=== PATIENT | female | born 1940 | race Caucasian/White ===

== ENCOUNTER 2017-09-28 16:38 | Emergency (ER) | payer OTHER, BC ==
[2017-09-28 16:46] VITALS: BP 142/70; PULSE 50; TEMP 98.3; BMI 27.1
[2017-09-28] MEDS ORDERED: SODIUM CHLORIDE 1,000 ML IV STA (17:48)
--- NOTE | 2017-09-28 18:04 | PDOC ---
History of Present Illness - General Chief Complaint: Lightheaded Stated Complaint: DIZZINESS Time Seen by Provider: 09/28/17 17:22 History Source: Patient Exam Limitations: No Limitations - History of Present Illness Initial Comments: CHIEF COMPLAINT: 77 y/o afebrile female with PMH HTN, HLD, DM (doctor recently discontinued glyburide) c/o dizziness with room spinning intermittently for the past few weeks. HISTORY OF PRESENT ILLNESS: The patient states the dizziness began about 4 weeks ago after her and she moved in with her son who is on Methadone. She states her life became very stressful and that's when the episodes of dizziness began. She states her doctor discontinued her glyburide AFTER the dizziness started. She is not currently dizzy. She was seen by her PMD on 09/[address] scan of the head was performed which was normal. She denies fever, chills, n/v/d, Cp, SOB, abd pain, back pain, hematuria, dysuria, recent URI symptoms, recent travel, positional dizziness. She also just had an ECHO and a carotid doppler a few days ago and does not have the results. PMD is Dr. Harris. Vital signs on arrival are notable for pulse of 50. REVIEW OF SYSTEMS: GENERAL/CONSTITUTIONAL: No fever/chills. No weakness. No weight change. HEAD, EYES, EARS, NOSE AND THROAT: No change in vision. No ear pain or discharge. No sore throat. CARDIOVASCULAR: No chest pain or shortness of breath. RESPIRATORY: No cough, wheezing, or hemoptysis. GASTROINTESTINAL: No abd pain, nausea, vomiting, diarrhea. GENITOURINARY: No dysuria, frequency, or change in urination. MUSCULOSKELETAL: No joint or muscle swelling or pain. No neck or back pain. SKIN: No rash or easy bruising. NEUROLOGIC: +dizziness with sensation of room spinning. No headache, loss of consciousness, or loss of sensation. PHYSICAL EXAM: GENERAL: The patient is awake, alert, and fully oriented, in no acute distress. She is very anxious and won't sit back in the ER bed. HEAD: Normal with no signs of trauma. ENT: Pupils equal, round and reactive to light, extraocular movements intact, sclera anicteric, conjunctiva clear. no nystagmus. No reproduction of symptoms with genoveva-hallpike maneuver. LUNGS: Clear to auscultation bilaterally. Normal excursion. No respiratory distress or use of accessory muscles. CV: RRR, S1/S2, no MRG. Cap refill < 2 sec. ABDOMEN: Soft, non-distended, non-tender even to deep palpation, no hepatomegaly or splenomegaly, no masses. EXTREMITIES: Normal range of motion, no edema. NEUROLOGICAL: Normal speech, normal gait. CN II-XII grossly intact. PSYCH: Patient is very anxious. SKIN: Warm, dry, normal turgor, no rashes or lesions noted. Past History - Past Medical History Allergies/Adverse Reactions: Allergies Allergy/AdvReac Type Severity Reaction Status Date / Time linagliptin [From Tradjenta] Allergy "RASH,HIVES Verified 09/28/17 16:46 " metformin HCl [From Glumetza] Allergy "DIARRHEA" Verified 09/28/17 16:46 sulfamethoxazole Allergy Verified 09/28/17 16:46 [From Sulfatrim] trimethoprim [From Sulfatrim] Allergy Verified 09/28/17 16:46 Home Medications: Ambulatory Orders Diltiazem HCl [Diltiazem 24Hr ER] 360 mg PO DAILY 01/02/15 Fenofibrate 160 mg PO DAILY 01/02/15 Furosemide 20 mg PO UTDICT 01/02/15 Glyburide 2.5 mg PO DAILY 01/02/15 Metoprolol Succinate [Toprol XL -] 50 mg PO DAILY 01/02/15 Aspirin Coated [Ecotrin -] 81 mg PO UTDICT 04/22/16 Lisinopril [Zestril] 2.5 mg PO DAILY 04/22/16 Meclizine HCl [Antivert -] 25 mg PO TID #15 tablet 09/28/17 Anemia: No Asthma: No Cancer: No Cardiac Disorders: Yes CVA: No COPD: No CHF: No Dementia: No Diabetes: Yes (DM2 no medication) GI Disorders: No Disorders: No HTN: Yes Hypercholesterolemia: No Liver Disease: No Seizures: No Thyroid Disease: No - Surgical History Orthopedic Surgery: Yes (KNEE SX X3) - Immunization History Immunization Up to Date: Yes (FLU AND PNA) - Suicide/Smoking/Psychosocial Hx Smoking History: Never smoked Have you smoked in the past 12 months: No Hx Alcohol Use: No Drug/Substance Use Hx: No Substance Use Type: None Hx Substance Use Treatment: No *Physical Exam - Vital Signs Last Vital Signs Temp Pulse Resp BP Pulse Ox 98.3 F 50 L 18 142/70 99 09/28/17 16:43 09/28/17 16:43 09/28/17 16:43 09/28/17 16:43 09/28/17 16:43 ED Treatment Course - LABORATORY CBC & Chemistry Diagram: 09/28/17 18:19 09/28/17 18:25 Medical Decision Making - Medical Decision Making A/p: 77 y/o female with what sounds like episodes of vertigo. Had negative Head CT on 09/18. Plan is as follows: 1. Labs 2. EKG 3. UA/culture 4. Orthostatic VS Labs ok. No UTI Patient feels better after Meclizine. Will discharge to home with rx for meclizine. Suggested she f/u with her PMD as soon as possible and return to the ER with any worsening or concerning symptoms. The patient verbalizes understanding of all instructions, has no further questions and is awaiting discharge. *DC/Admit/Observation/Transfer Diagnosis at time of Disposition: Vertigo - Discharge Dispostion Disposition: HOME Condition at time of disposition: Good - Prescriptions Prescriptions: Meclizine HCl [Antivert -] 25 mg PO TID #15 tablet - Referrals Referrals: Matthew Harris MD [Primary Care Provider] - Call tomorrow - Patient Instructions Printed Discharge Instructions: DI for Vertigo Additional Instructions: Discharge instructions: -Your lab and urine tests were negative -You were slightly dehydrated; please drink at least 64oz of water daily -A prescription for medication for dizziness has been sent to your pharmacy; please take if needed for dizziness -Follow up with Dr. Harris tomorrow -Return to the ER with any worsening or concerning symptoms - Post Discharge Activity
[2017-09-28 18:35] LABS: BASO % 1.4 % (0-2.0); EOS % 2.1 % (0-4.5); HEMATOCRIT 41.1 % (32.4-45.2); HEMOGLOBIN 13.4 GM/dL (10.7-15.3); LYMPH % 21.4 % (8-40); MCH 30.6 pg (25.7-33.7); MCHC 32.7 g/dl (32.0-36.0); MEAN CELL VOLUME 93.7 fl (80-96); MEAN PLT VOLUME 8.8 fl (7.5-11.1); MONO % 11.5 % (3.8-10.2); NEUT % 63.6 % (42.8-82.8); PLATELET COUNT 238 K/MM3 (134-434); RBC 4.39 M/mm3 (3.60-5.2); RDW 14.5 % (11.6-15.6); WHITE BLOOD COUNT 8.1 K/mm3 (4.0-10.0)
[2017-09-28 18:39] LABS: URINE APPEARANCE CLEAR; URINE BILIRUBIN NEGATIVE (<2.0 mg/dL); URINE COLOR YELLOW; URINE GLUCOSE (UA) NEGATIVE (NEGATIVE); URINE KETONE NEGATIVE (NEGATIVE); URINE NITRITE NEGATIVE (NEGATIVE); URINE PROTEIN NEGATIVE (NEGATIVE); URINE UROBILINOGEN NEGATIVE mg/dL (0.2-1.0)
[2017-09-28 18:40] LABS: URINE LEUK ESTERASE 2+ (NEGATIVE)
[2017-09-28 18:42] LABS: EPI CELLS RARE /HPF (FEW); URINE MUCUS RARE
[2017-09-28 18:56] LABS: ALBUMIN 3.8 g/dl (3.4-5.0); ANION GAP 3 (8-16); BILIRUBIN,TOTAL 0.3 mg/dL (0.2-1.0); BLOOD UREA NITROGEN 32 mg/dL (7-18); CALCIUM 9.8 mg/dL (8.5-10.1); CHLORIDE 113 mmol/L (98-107); CO2 28 mmol/L (21-32); CREATININE 1.4 mg/dL (0.55-1.02); GLUCOSE,RANDOM 111 mg/dL (74-106); MAGNESIUM 2.2 mg/dL (1.8-2.4); SGOT/AST 29 U/L (15-37); SGPT/ALT 45 U/L (12-78); SODIUM 144 mmol/L (136-145); TOT PROT 6.5 g/dl (6.4-8.2)
[2017-09-28 18:57] LABS: ALK PHOS 77 U/L (45-117)
== END 2017-09-28 19:18 | disposition home or self-care (01) ==
LOC: JER 16:38
PROC: 3E0337Z Introduction of Electrolytic and Water Balance Substance into Peripheral Vein, Percutaneous Approach (ICD-10-PCS; principal; 2017-09-28)
DX: E86.0 Dehydration (principal); R42 Dizziness and giddiness; I10 Essential (primary) hypertension; E11.9 Type 2 diabetes mellitus without complications
CPT/HCPCS: 36415; 80053; 81003; 81015; 83735; 85025; 87086; 96360; 99284-25; J7030

== ENCOUNTER 2021-05-17 14:26 | Emergency (ER) | payer OTHER, BC ==
[2021-05-17 14:48] VITALS: BP 169/70; PULSE 59; TEMP 99.7; BMI 32.1
[2021-05-17] MEDS ORDERED: PRESCRIPTION PAD 1 EACH EACH NR ONE (17:12)
[2021-05-17 18:03] LABS: CREATININE 1.6 mg/dl (0.55-1.3)
[2021-05-17 18:37] LABS: HEMATOCRIT 39.3 % (32.4-45.2); HEMOGLOBIN 13.2 GM/dL (10.7-15.3); MCH 30.7 pg (25.7-33.7); MCHC 33.4 g/dl (32.0-36.0); MEAN CELL VOLUME 91.9 fl (80-96); MEAN PLT VOLUME 8.1 fl (7.5-11.1); PLATELET COUNT 224 10^3/uL (134-434); RBC 4.28 M/mm3 (3.60-5.2); RDW 14.8 % (11.6-15.6); WHITE BLOOD COUNT 5.9 K/mm3 (4.0-10.0)
== END 2021-05-17 16:45 | disposition home or self-care (01) ==
LOC: FER 14:26
DX: R05.9 Cough, unspecified (principal)
CPT/HCPCS: 36415; 71045-TC-FY; 80048; 85027; 87804; 99284-25; C9803; U0003; U0005

== ENCOUNTER 2022-04-30 13:42 | Inpatient (IN) | payer OTHER, BC ==
[2022-04-30 15:27] LABS: VENOUS BASE EXCESS 0.3 mmol/L (-2-2); VENOUS O2 SATURATION 36.9 % (70-80); VENOUS PCO2 52.5 mmHg (38-52); VENOUS PH 7.323 (7.310-7.410)
[2022-04-30 15:28] LABS: BASO % 0.8 % (0-2.0); EOS % 1.6 % (0-4.5); HEMATOCRIT 28.4 % (32.4-45.2); HEMOGLOBIN 8.9 GM/dL (10.7-15.3); LYMPH % 8.4 % (8-40); MCH 30.4 pg (25.7-33.7); MCHC 31.2 g/dl (32.0-36.0); MEAN CELL VOLUME 97.4 fl (80-96); MEAN PLT VOLUME 7.5 fl (7.5-11.1); MONO % 8.2 % (3.8-10.2); PLATELET COUNT 300 10^3/uL (134-434); RBC 2.91 M/mm3 (3.60-5.2); RDW 15.3 % (11.6-15.6); WHITE BLOOD COUNT 6.9 K/mm3 (4.0-10.0)
[2022-04-30 15:32] LABS: EPI CELLS 2 /uL (0-25.1); HYALINE CASTS 0 /uL (0-3.1); URINE APPEARANCE TURBID; URINE BACTERIA >9,000 /uL (0-1359); URINE BILIRUBIN NEGATIVE (NEGATIVE); URINE COLOR YELLOW; URINE GLUCOSE (UA) NEGATIVE (NEGATIVE); URINE KETONE NEGATIVE (NEGATIVE); URINE LEUK ESTERASE 3+ (NEGATIVE); URINE NITRITE NEGATIVE (NEGATIVE); URINE PROTEIN 3+ (NEGATIVE); URINE RBC 20 /uL (0-23.9); URINE UROBILINOGEN 0.2 mg/dL (0.2-1.0); URINE WBC 3276 /uL (0-25.8)
[2022-04-30] MEDS ORDERED: CEFTRIAXONE 1,000 MG in DEXTROSE 5%-WATER - 50 ML IVPB ONE (15:54)
[2022-04-30 15:59] LABS: CALCIUM 9.8 mg/dL (8.5-10.1)
[2022-04-30 16:00] LABS: ALBUMIN 2.6 g/dl (3.4-5.0); BLOOD UREA NITROGEN 47.3 mg/dL (7-18)
[2022-04-30 16:04] LABS: TOT PROT 5.4 g/dl (6.4-8.2)
[2022-04-30 16:05] LABS: BILIRUBIN,TOTAL 0.3 mg/dL (0.2-1)
[2022-04-30 16:08] LABS: N-TERMINAL BNP 7475.7 pg/ml (5-450)
[2022-04-30] MEDS ORDERED: CEFTRIAXONE 1 GM/50 ML BAG ONE (16:08)
[2022-04-30] MEDS ORDERED: HEPARIN NA (PORCINE) 5,000 UNITS/ML 1ML VIAL IVPUSH PRN ×2 (20:50)
[2022-04-30] MEDS ORDERED: SODIUM CHLORIDE 1,000 ML IV SCH (21:00)
[2022-04-30] MEDS ORDERED: ACETAMINOPHEN 1000 MG/100 ML BAG IVPB ONE (21:52)
[2022-04-30] MEDS: HEPARIN SOD,PORK IN 0.45% NACL 25,000 UNIT/500 ML INFUS.BAG IVPB SCH (22:57)
[2022-04-30] MEDS ORDERED: ACETAMINOPHEN INJECTION 100 ML IVPB ONE (23:01)
[2022-05-01 08:13] LABS: BASO % 0.6 % (0-2.0); EOS % 1.1 % (0-4.5); HEMATOCRIT 29.3 % (32.4-45.2); HEMOGLOBIN 9.1 GM/dL (10.7-15.3); MCH 30.2 pg (25.7-33.7); MCHC 31.1 g/dl (32.0-36.0); MEAN CELL VOLUME 97.1 fl (80-96); MEAN PLT VOLUME 7.8 fl (7.5-11.1); MONO % 11.9 % (3.8-10.2); NEUT % 72.4 % (42.8-82.8); PLATELET COUNT 288 10^3/uL (134-434); RBC 3.02 M/mm3 (3.60-5.2); RDW 15.2 % (11.6-15.6); WHITE BLOOD COUNT 6.2 K/mm3 (4.0-10.0)
[2022-05-01 08:37] LABS: CALCIUM 9.8 mg/dL (8.5-10.1)
[2022-05-01 08:38] LABS: BLOOD UREA NITROGEN 51.7 mg/dL (7-18)
[2022-05-01 08:40] LABS: ALBUMIN 2.6 g/dl (3.4-5.0); CREATININE 1.9 mg/dL (0.55-1.3)
[2022-05-01 08:41] LABS: TOT PROT 5.5 g/dl (6.4-8.2)
[2022-05-01 08:42] LABS: BILIRUBIN,TOTAL 0.4 mg/dL (0.2-1)
[2022-05-01] MEDS ORDERED: OSELTAMIVIR PHOSPHATE 45 MG CAPSULE PO SCH (10:00)
[2022-05-01] MEDS: CEFTRIAXONE 1 GM in DEXTROSE 5%-WATER - 50 ML IVPB SCH (10:00)
[2022-05-01] MEDS ORDERED: METOPROLOL TARTRATE 50 MG TABLET (FP) ONE (10:29)
[2022-05-01] MEDS ORDERED: METOPROLOL TARTRATE 25 MG TABLET (FP) ONE (10:29)
[2022-05-01] MEDS ORDERED: CEFTRIAXONE 1 GM/50 ML BAG ONE (10:30)
[2022-05-01] MEDS: OSELTAMIVIR PHOSPHATE 30 MG CAPSULE PO SCH (10:41)
[2022-05-01] MEDS: METOPROLOL TARTRATE 25 MG TABLET (FP) PO SCH (10:41)
[2022-05-01 14:36] VITALS: BMI 31.6
[2022-05-01] MEDS ORDERED: POLYETHYLENE GLYCOL (HEALTHYLAX) 3350 17 GM PACKET PO ONE (16:15)
[2022-05-01] MEDS ORDERED: FUROSEMIDE 40 MG TABLET (FP) PO ONE (16:30)
[2022-05-01] MEDS: HEPARIN SOD,PORK IN 0.45% NACL 25,000 UNIT/500 ML INFUS.BAG IVPB SCH (22:00)
[2022-05-01] MEDS ORDERED: CIPROFLOXACIN 500 MG TABLET (RESTRICTED TO ID) PO SCH (22:00)
[2022-05-02] MEDS: METOPROLOL TARTRATE 25 MG TABLET (FP) PO SCH (11:22)
[2022-05-02] MEDS: CEFTRIAXONE 1 GM in DEXTROSE 5%-WATER - 50 ML IVPB SCH ×3 (11:22→17:28)
[2022-05-02] MEDS: FUROSEMIDE 20 MG TABLET (FP) PO SCH (11:22)
[2022-05-02] MEDS: POLYETHYLENE GLYCOL (HEALTHYLAX) 3350 17 GM PACKET PO SCH (11:23)
[2022-05-02] MEDS: OSELTAMIVIR PHOSPHATE 30 MG CAPSULE PO SCH (11:23)
[2022-05-02 11:27] LABS: BASO % 0.8 % (0-2.0); EOS % 5.9 % (0-4.5); HEMATOCRIT 26.8 % (32.4-45.2); HEMOGLOBIN 8.5 GM/dL (10.7-15.3); LYMPH % 17.5 % (8-40); MCH 30.1 pg (25.7-33.7); MCHC 31.7 g/dl (32.0-36.0); MEAN CELL VOLUME 94.9 fl (80-96); MONO % 14.6 % (3.8-10.2); NEUT % 61.2 % (42.8-82.8); PLATELET COUNT 287 10^3/uL (134-434); RBC 2.82 M/mm3 (3.60-5.2); RDW 14.7 % (11.6-15.6)
[2022-05-02 11:53] LABS: CALCIUM 9.5 mg/dL (8.5-10.1)
[2022-05-02 11:54] LABS: BLOOD UREA NITROGEN 47.7 mg/dL (7-18)
[2022-05-02 11:57] LABS: CREATININE 1.6 mg/dL (0.55-1.3)
[2022-05-03] MEDS: HEPARIN SOD,PORK IN 0.45% NACL 25,000 UNIT/500 ML INFUS.BAG IVPB SCH (01:21)
[2022-05-03] MEDS: OSELTAMIVIR PHOSPHATE 30 MG CAPSULE PO SCH (09:46)
[2022-05-03] MEDS: METOPROLOL TARTRATE 25 MG TABLET (FP) PO SCH (09:46)
[2022-05-03] MEDS: POLYETHYLENE GLYCOL (HEALTHYLAX) 3350 17 GM PACKET PO SCH (09:46)
[2022-05-03] MEDS: FUROSEMIDE 20 MG TABLET (FP) PO SCH (09:47)
[2022-05-03] MEDS: ALBUTEROL SO4 2.5/IPRATROPIUM 0.5 INH SOL 3 ML VIAL.NEB. NEB SCH ×3 (12:25→20:00)
[2022-05-03 12:26] LABS: BASO % 0.8 % (0-2.0); EOS % 6.6 % (0-4.5); HEMATOCRIT 28.2 % (32.4-45.2); HEMOGLOBIN 9.1 GM/dL (10.7-15.3); LYMPH % 20.3 % (8-40); MCH 30.5 pg (25.7-33.7); MCHC 32.2 g/dl (32.0-36.0); MEAN CELL VOLUME 94.6 fl (80-96); MEAN PLT VOLUME 8.2 fl (7.5-11.1); MONO % 13.5 % (3.8-10.2); NEUT % 58.8 % (42.8-82.8); PLATELET COUNT 266 10^3/uL (134-434); RBC 2.98 M/mm3 (3.60-5.2); RDW 14.6 % (11.6-15.6); WHITE BLOOD COUNT 3.8 K/mm3 (4.0-10.0)
[2022-05-03 12:51] LABS: ALBUMIN 2.3 g/dl (3.4-5.0); BLOOD UREA NITROGEN 48.7 mg/dL (7-18); CALCIUM 9.7 mg/dL (8.5-10.1)
[2022-05-03 12:54] LABS: CREATININE 1.5 mg/dL (0.55-1.3)
[2022-05-03 12:56] LABS: BILIRUBIN,TOTAL 0.3 mg/dL (0.2-1); TOT PROT 4.9 g/dl (6.4-8.2)
[2022-05-03] MEDS: methylPREDNISolone NA SUCC 40 MG/1 ML VIAL IVPUSH SCH ×2 (13:09→17:38)
[2022-05-03] MEDS: CEFTRIAXONE 1 GM in DEXTROSE 5%-WATER - 50 ML IVPB SCH (17:35)
[2022-05-04] MEDS: methylPREDNISolone NA SUCC 40 MG/1 ML VIAL IVPUSH SCH ×3 (02:23→17:20)
[2022-05-04] MEDS: ALBUTEROL SO4 2.5/IPRATROPIUM 0.5 INH SOL 3 ML VIAL.NEB. NEB SCH ×4 (08:03→20:56)
[2022-05-04] MEDS: OSELTAMIVIR PHOSPHATE 30 MG CAPSULE PO SCH (09:40)
[2022-05-04] MEDS: METOPROLOL TARTRATE 25 MG TABLET (FP) PO SCH (09:40)
[2022-05-04] MEDS: POLYETHYLENE GLYCOL (HEALTHYLAX) 3350 17 GM PACKET PO SCH ×2 (09:40→10:40)
[2022-05-04] MEDS: FUROSEMIDE 20 MG TABLET (FP) PO SCH (09:40)
[2022-05-04 10:59] LABS: HEMATOCRIT 29.1 % (32.4-45.2); HEMOGLOBIN 9.3 GM/dL (10.7-15.3); MCH 29.9 pg (25.7-33.7); MEAN CELL VOLUME 93.5 fl (80-96); MEAN PLT VOLUME 8.3 fl (7.5-11.1); PLATELET COUNT 285 10^3/uL (134-434); RBC 3.11 M/mm3 (3.60-5.2); RDW 14.1 % (11.6-15.6); WHITE BLOOD COUNT 2.6 K/mm3 (4.0-10.0)
[2022-05-04] MEDS: CEFTRIAXONE 1 GM in DEXTROSE 5%-WATER - 50 ML IVPB SCH (18:20)
[2022-05-05] MEDS: methylPREDNISolone NA SUCC 40 MG/1 ML VIAL IVPUSH SCH (01:30)
[2022-05-05] MEDS: ALBUTEROL SO4 2.5/IPRATROPIUM 0.5 INH SOL 3 ML VIAL.NEB. NEB SCH ×4 (07:41→19:42)
[2022-05-05 09:12] LABS: HEMATOCRIT 29.1 % (32.4-45.2); HEMOGLOBIN 9.2 GM/dL (10.7-15.3); MCH 29.6 pg (25.7-33.7); MCHC 31.5 g/dl (32.0-36.0); MEAN CELL VOLUME 93.8 fl (80-96); MEAN PLT VOLUME 8.1 fl (7.5-11.1); PLATELET COUNT 321 10^3/uL (134-434); RDW 14.6 % (11.6-15.6); WHITE BLOOD COUNT 7.9 K/mm3 (4.0-10.0)
[2022-05-05] MEDS: METOPROLOL TARTRATE 25 MG TABLET (FP) PO SCH (09:35)
[2022-05-05] MEDS: OSELTAMIVIR PHOSPHATE 30 MG CAPSULE PO SCH (09:35)
[2022-05-05] MEDS: POLYETHYLENE GLYCOL (HEALTHYLAX) 3350 17 GM PACKET PO SCH (09:36)
[2022-05-05] MEDS: FUROSEMIDE 20 MG TABLET (FP) PO SCH (09:37)
[2022-05-05 11:08] LABS: CALCIUM 9.9 mg/dL (8.5-10.1)
[2022-05-05 11:09] LABS: BLOOD UREA NITROGEN 56.3 mg/dL (7-18)
[2022-05-05 11:12] LABS: CREATININE 1.8 mg/dL (0.55-1.3)
[2022-05-06] MEDS: ALBUTEROL SO4 2.5/IPRATROPIUM 0.5 INH SOL 3 ML VIAL.NEB. NEB SCH ×4 (08:00→20:05)
[2022-05-06 08:50] VITALS: RESP 18
[2022-05-06] MEDS: METOPROLOL TARTRATE 25 MG TABLET (FP) PO SCH (09:34)
[2022-05-06] MEDS: POLYETHYLENE GLYCOL (HEALTHYLAX) 3350 17 GM PACKET PO SCH (09:35)
[2022-05-06] MEDS: FUROSEMIDE 20 MG TABLET (FP) PO SCH (09:35)
[2022-05-06 10:50] LABS: HEMATOCRIT 29.3 % (32.4-45.2); HEMOGLOBIN 9.1 GM/dL (10.7-15.3); MCH 29.3 pg (25.7-33.7); MCHC 31.1 g/dl (32.0-36.0); MEAN PLT VOLUME 8.2 fl (7.5-11.1); PLATELET COUNT 337 10^3/uL (134-434); RBC 3.12 M/mm3 (3.60-5.2); WHITE BLOOD COUNT 11.5 K/mm3 (4.0-10.0)
[2022-05-06 11:35] LABS: CALCIUM 9.7 mg/dL (8.5-10.1)
[2022-05-06 11:36] LABS: BLOOD UREA NITROGEN 64.8 mg/dL (7-18)
[2022-05-06 11:39] LABS: CREATININE 1.9 mg/dL (0.55-1.3)
[2022-05-06 11:44] LABS: N-TERMINAL BNP 1955.6 pg/ml (5-450)
[2022-05-06 12:29] LABS: ANISOCYTOSIS 3+; MACROCYTOSIS 0
[2022-05-07] MEDS: ALBUTEROL SO4 2.5/IPRATROPIUM 0.5 INH SOL 3 ML VIAL.NEB. NEB SCH (07:40)
[2022-05-07] MEDS: POLYETHYLENE GLYCOL (HEALTHYLAX) 3350 17 GM PACKET PO SCH (09:28)
[2022-05-07] MEDS: METOPROLOL TARTRATE 25 MG TABLET (FP) PO SCH (09:28)
[2022-05-07] MEDS ORDERED: FUROSEMIDE 40 MG TABLET (FP) PO ONE (10:17)
[2022-05-07 13:10] LABS: HEMATOCRIT 30.4 % (32.4-45.2); HEMOGLOBIN 9.6 GM/dL (10.7-15.3); MCH 29.7 pg (25.7-33.7); MCHC 31.6 g/dl (32.0-36.0); MEAN CELL VOLUME 94.1 fl (80-96); MEAN PLT VOLUME 8.4 fl (7.5-11.1); PLATELET COUNT 362 10^3/uL (134-434); RBC 3.23 M/mm3 (3.60-5.2); WHITE BLOOD COUNT 11.6 K/mm3 (4.0-10.0)
[2022-05-07 13:34] LABS: ANISOCYTOSIS 0; HELMET CELLS 0; HOWELL-JOLLY BODIES 0; MACROCYTOSIS 0; OVALOCYTE 0; ROULEAU 0; SICKELED CELLS 0; TARGET CELLS 0; TEAR DROP CELLS 0; TOXIC GRANULATION 0
[2022-05-07 13:36] LABS: ALBUMIN 2.4 g/dl (3.4-5.0); BLOOD UREA NITROGEN 60.8 mg/dL (7-18); CALCIUM 9.3 mg/dL (8.5-10.1)
[2022-05-07 13:40] LABS: CREATININE 1.6 mg/dL (0.55-1.3)
[2022-05-07 13:41] LABS: BILIRUBIN,TOTAL 0.4 mg/dL (0.2-1); TOT PROT 4.9 g/dl (6.4-8.2)
[2022-05-07 14:33] VITALS: BP 140/63; PULSE 56; TEMP 98.8
[2022-05-07] MEDS: CIPROFLOXACIN 250 MG TABLET (RESTRICTED TO ID) PO SCH (14:47)
[2022-05-07] MEDS ORDERED: AMOX TR/POT CLAV 500MG/125MG TABLETS (FP) PO SCH (17:30)
[2022-05-08] MEDS ORDERED: FUROSEMIDE 20 MG TABLET (FP) PO SCH (10:00)
[2022-05-08] MEDS ORDERED: FLUTICASONE PROP 0.05% 16 GM NASAL SPRAY NS SCH (10:00)
== END 2022-05-07 15:49 | DRG 193 ==
LOC: JER 13:42 → JERBED 16:39 → J5S 05-01 11:06
PROVIDERS: ADMIT Family Medicine; ATTEND Family Medicine
DX: J10.1 Influenza due to other identified influenza virus with other respiratory manifestations (principal); J96.01 Acute respiratory failure with hypoxia; N17.9 Acute kidney failure, unspecified; N39.0 Urinary tract infection, site not specified; E87.0 Hyperosmolality and hypernatremia; I13.0 Hypertensive heart and chronic kidney disease with heart failure and stage 1 through stage 4 chronic kidney disease, or unspecified chronic kidney disease; E78.5 Hyperlipidemia, unspecified; E11.22 Type 2 diabetes mellitus with diabetic chronic kidney disease; N18.9 Chronic kidney disease, unspecified; I50.9 Heart failure, unspecified
CPT/HCPCS: 0241U-QW; 36415; 71045-TC-FY; 78582-TC; 80048; 80053; 81003; 82272; 82803; 82962; 83036; 83605; 83880; 84484; 85025; 85027; 85379; 85730; 87040; 87086; 87186; 93005; 93010; 93306-TC; 93970-TC; 94640; 94761; 97116-GP; 97162-GP; 99285-25; A9539; A9540; C9803-CS; U0003; U0005

== ENCOUNTER 2023-05-07 10:02 | Observation (INO) | payer OTHER, BC ==
[2023-05-07 10:06] VITALS: BMI 29.2
[2023-05-07 12:14] LABS: BASO % 0.8 % (0-2.0); EOS % 3.6 % (0-4.5); HEMATOCRIT 33.5 % (32.4-45.2); HEMOGLOBIN 10.7 GM/dL (10.7-15.3); LYMPH % 13.8 % (8-40); MCH 30.9 pg (25.7-33.7); MCHC 31.9 g/dl (32.0-36.0); MEAN PLT VOLUME 8.1 fl (7.5-11.1); MONO % 9.7 % (3.8-10.2); NEUT % 72.1 % (42.8-82.8); PLATELET COUNT 277 10^3/uL (134-434); RBC 3.46 M/mm3 (3.60-5.2); RDW 14.4 % (11.6-15.6); WHITE BLOOD COUNT 5.9 K/mm3 (4.0-10.0)
[2023-05-07 12:28] LABS: ACTIVATED PTT 33.6 SECONDS (25.2-36.5); INR 1.06 (0.83-1.09); POTASSIUM 4.3 mmol/L (3.5-5.1); PROTHROMBIN TIME (PATIENT) 12.3 SEC (9.7-13.0)
[2023-05-07 12:30] LABS: CALCIUM 9.8 mg/dL (8.5-10.1)
[2023-05-07 12:31] LABS: ALBUMIN 3.1 g/dl (3.4-5.0); BLOOD UREA NITROGEN 57.5 mg/dL (7-18)
[2023-05-07 12:34] LABS: CREATININE 2.9 mg/dL (0.55-1.3)
[2023-05-07 12:35] LABS: TOT PROT 5.9 g/dl (6.4-8.2)
[2023-05-07 12:36] LABS: BILIRUBIN,TOTAL 0.4 mg/dL (0.2-1)
[2023-05-07 13:06] LABS: EPI CELLS >36 /uL (0-25.1); HYALINE CASTS 18 /uL (0-3.1); PH,URINE 5.5 (5.0-8.0); URINE APPEARANCE TURBID; URINE BACTERIA >9,000 /uL (0-1359); URINE BILIRUBIN NEGATIVE (NEGATIVE); URINE COLOR YELLOW; URINE GLUCOSE (UA) NEGATIVE (NEGATIVE); URINE KETONE NEGATIVE (NEGATIVE); URINE LEUK ESTERASE 3+ (NEGATIVE); URINE NITRITE NEGATIVE (NEGATIVE); URINE PROTEIN 3+ (NEGATIVE); URINE RBC 312 /uL (0-23.9); URINE UROBILINOGEN 0.2 mg/dL (0.2-1.0); URINE WBC 14272 /uL (0-25.8)
[2023-05-07] MEDS ORDERED: CEFTRIAXONE 1,000 MG in DEXTROSE 5%-WATER - 50 ML IVPB ONE (13:28)
[2023-05-07] MEDS ORDERED: CEFTRIAXONE 1 GM/50 ML BAG ONE (13:33)
[2023-05-07 13:43] LABS: YEAST NEGATIVE (NEGATIVE)
[2023-05-08] MEDS ORDERED: glyBURIDE MICRONIZED 1.5 MG TABLET PO SCH (07:00)
[2023-05-08 07:41] LABS: BASO % 0.9 % (0-2.0); EOS % 4.8 % (0-4.5); HEMATOCRIT 30.8 % (32.4-45.2); LYMPH % 12.5 % (8-40); MCH 31.3 pg (25.7-33.7); MCHC 32.5 g/dl (32.0-36.0); MEAN CELL VOLUME 96.3 fl (80-96); MEAN PLT VOLUME 8.3 fl (7.5-11.1); MONO % 9.9 % (3.8-10.2); NEUT % 71.9 % (42.8-82.8); PLATELET COUNT 261 10^3/uL (134-434); RDW 14.5 % (11.6-15.6)
[2023-05-08 08:16] LABS: POTASSIUM 4.2 mmol/L (3.5-5.1)
[2023-05-08 08:24] LABS: BLOOD UREA NITROGEN 54.1 mg/dL (7-18); CALCIUM 9.2 mg/dL (8.5-10.1)
[2023-05-08 08:26] LABS: CREATININE 2.6 mg/dL (0.55-1.3)
[2023-05-08] MEDS: CEFTRIAXONE 1 GM in DEXTROSE 5%-WATER - 50 ML IVPB SCH (12:10)
[2023-05-08] MEDS ORDERED: DEXTROSE 50%-WATER 25 GM/50 ML DISP.SYRIN IVPUSH ONE ×2 (17:15→23:56)
[2023-05-08 20:27] LABS: POTASSIUM 4.4 mmol/L (3.5-5.1)
[2023-05-08 20:28] LABS: CALCIUM 8.6 mg/dL (8.5-10.1)
[2023-05-08 20:30] LABS: BLOOD UREA NITROGEN 48.2 mg/dL (7-18)
[2023-05-08 20:32] LABS: CREATININE 2.8 mg/dL (0.55-1.3)
[2023-05-09] MEDS ORDERED: DEXTROSE 50%-WATER - 25 GM/50 ML VIAL IVPUSH ONE ×3 (06:22→07:45)
[2023-05-09 09:54] LABS: HEMATOCRIT 34.1 % (32.4-45.2); HEMOGLOBIN 10.9 GM/dL (10.7-15.3); MCHC 32.1 g/dl (32.0-36.0); MEAN CELL VOLUME 96.5 fl (80-96); MEAN PLT VOLUME 7.9 fl (7.5-11.1); PLATELET COUNT 306 10^3/uL (134-434); RBC 3.53 M/mm3 (3.60-5.2); RDW 14.7 % (11.6-15.6); WHITE BLOOD COUNT 8.8 K/mm3 (4.0-10.0)
[2023-05-09 10:35] LABS: POTASSIUM 4.8 mmol/L (3.5-5.1)
[2023-05-09 10:37] LABS: BLOOD UREA NITROGEN 45.3 mg/dL (7-18); CALCIUM 8.6 mg/dL (8.5-10.1)
[2023-05-09] MEDS: CEFTRIAXONE 1 GM in DEXTROSE 5%-WATER - 50 ML IVPB SCH (10:37)
[2023-05-09 10:38] LABS: MAGNESIUM 1.9 mg/dL (1.8-2.4)
[2023-05-09 10:42] LABS: CREATININE 2.5 mg/dL (0.55-1.3); PHOSPHOROUS 3.3 mg/dL (2.5-4.9)
[2023-05-09 10:43] LABS: BILIRUBIN,TOTAL 0.3 mg/dL (0.2-1); TOT PROT 6.1 g/dl (6.4-8.2)
[2023-05-09] MEDS ORDERED: INSULIN ASPART SLIDING SCALE (NOVOLOG) 1 VIAL SQ SCH (11:00)
[2023-05-09] MEDS ORDERED: DEXTROSE 50%-WATER 25 GM/50 ML DISP.SYRIN ONE (11:52)
[2023-05-09] MEDS ORDERED: ONDANSETRON 4 MG TABLET PO PRN (13:42)
[2023-05-09 21:49] VITALS: RESP 18
[2023-05-09] MEDS ORDERED: CIPROFLOXACIN 250 MG TABLET (RESTRICTED TO ID) PO SCH ×2 (22:00)
[2023-05-10 05:02] VITALS: TEMP 98.7
[2023-05-10 09:32] LABS: HEMATOCRIT 30.2 % (32.4-45.2); HEMOGLOBIN 10.1 GM/dL (10.7-15.3); MCHC 33.5 g/dl (32.0-36.0); MEAN CELL VOLUME 95.4 fl (80-96); MEAN PLT VOLUME 8.3 fl (7.5-11.1); PLATELET COUNT 271 10^3/uL (134-434); RBC 3.17 M/mm3 (3.60-5.2); RDW 14.3 % (11.6-15.6)
[2023-05-10 09:42] LABS: POTASSIUM 4.9 mmol/L (3.5-5.1)
[2023-05-10 10:04] LABS: ALBUMIN 2.7 g/dl (3.4-5.0); BLOOD UREA NITROGEN 36.2 mg/dL (7-18); CALCIUM 9.1 mg/dL (8.5-10.1)
[2023-05-10 10:07] LABS: CREATININE 2.4 mg/dL (0.55-1.3)
[2023-05-10 10:08] LABS: TOT PROT 5.6 g/dl (6.4-8.2)
[2023-05-10 10:09] LABS: BILIRUBIN,TOTAL 0.4 mg/dL (0.2-1)
[2023-05-10 11:47] VITALS: BP 139/68; PULSE 62
== END 2023-05-10 11:59 | disposition home or self-care (01) ==
LOC: JER 10:02 → INTOOBSV 13:28 → JERBED 13:28 → J7W 15:59
PROVIDERS: ADMIT Family Medicine; ATTEND Family Medicine
PROC: 3E03329 Introduction of Other Anti-infective into Peripheral Vein, Percutaneous Approach (ICD-10-PCS; principal; 2023-05-07)
PROC: 3E0337Z Introduction of Electrolytic and Water Balance Substance into Peripheral Vein, Percutaneous Approach (ICD-10-PCS; 2023-05-07)
DX: N39.0 Urinary tract infection, site not specified (principal); N17.9 Acute kidney failure, unspecified; N95.0 Postmenopausal bleeding; E16.2 Hypoglycemia, unspecified; E78.5 Hyperlipidemia, unspecified; D64.9 Anemia, unspecified; I50.9 Heart failure, unspecified; I11.0 Hypertensive heart disease with heart failure; R09.02 Hypoxemia
CPT/HCPCS: 36415; 70450-TC; 70486-TC; 71045-TC-FY; 72125-TC; 72192-TC; 76830-TC; 80048; 80053; 81003; 82272; 82962; 83036; 83605; 83735; 83880; 84100; 85025; 85027; 85610; 85730; 86850; 86900; 86901; 87040; 87086; 87186; 93005; 93010; 96361; 96365; 96366; 97116-GP; 97161-GP; 99285-25; G0378

== ENCOUNTER 2023-12-19 17:01 | Inpatient (IN) | payer OTHER, BC ==
[2023-12-19 17:14] VITALS: BMI 27.9
[2023-12-19 18:01] LABS: BASO % 0.8 % (0-2.0); EOS % 2.4 % (0-4.5); HEMATOCRIT 33.9 % (32.4-45.2); LYMPH % 16.2 % (8-40); MCH 31.3 pg (25.7-33.7); MCHC 32.5 g/dl (32.0-36.0); MEAN CELL VOLUME 96.5 fl (80-96); MEAN PLT VOLUME 8.5 fl (7.5-11.1); MONO % 11.9 % (3.8-10.2); NEUT % 68.7 % (42.8-82.8); PLATELET COUNT 242 10^3/uL (134-434); RBC 3.51 M/mm3 (3.60-5.2); RDW 16.3 % (11.6-15.6); WHITE BLOOD COUNT 5.2 K/mm3 (4.0-10.0)
[2023-12-19 18:17] LABS: POTASSIUM 4.1 mmol/L (3.5-5.1)
[2023-12-19 18:21] LABS: ALBUMIN 3.3 g/dl (3.4-5.0); BLOOD UREA NITROGEN 63.2 mg/dL (7-18); MAGNESIUM 2.3 mg/dL (1.8-2.4)
[2023-12-19 18:25] LABS: CREATININE 3.6 mg/dL (0.55-1.3)
[2023-12-19 18:26] LABS: PHOSPHOROUS 4.7 mg/dL (2.5-4.9)
[2023-12-19 18:27] LABS: BILIRUBIN,TOTAL 0.6 mg/dL (0.2-1); TOT PROT 5.9 g/dl (6.4-8.2)
[2023-12-19 21:19] LABS: N-TERMINAL BNP 9102.2 pg/ml (5-450)
[2023-12-20] MEDS ORDERED: FUROSEMIDE 40 MG/4 ML INJECTABLE VIAL ONE (00:34)
[2023-12-20] MEDS: FUROSEMIDE 100 MG/10 ML INJECTABLE VIAL IVPB ONE (00:55)
[2023-12-20] MEDS: amLODIPine BESYLATE 2.5 MG TABLET (FP) PO ONE (06:18)
[2023-12-20 07:49] LABS: BASO % 0.9 % (0-2.0); EOS % 3.1 % (0-4.5); HEMATOCRIT 31.2 % (32.4-45.2); HEMOGLOBIN 10.4 GM/dL (10.7-15.3); LYMPH % 17.7 % (8-40); MCH 32.6 pg (25.7-33.7); MCHC 33.4 g/dl (32.0-36.0); MEAN CELL VOLUME 97.5 fl (80-96); MEAN PLT VOLUME 8.9 fl (7.5-11.1); MONO % 11.7 % (3.8-10.2); NEUT % 66.6 % (42.8-82.8); PLATELET COUNT 206 10^3/uL (134-434); WHITE BLOOD COUNT 5.5 K/mm3 (4.0-10.0)
[2023-12-20 07:57] LABS: POTASSIUM 3.6 mmol/L (3.5-5.1)
[2023-12-20 07:59] LABS: ALBUMIN 3.1 g/dl (3.4-5.0)
[2023-12-20 08:00] LABS: BLOOD UREA NITROGEN 55.9 mg/dL (7-18)
[2023-12-20 08:02] LABS: CREATININE 3.4 mg/dL (0.55-1.3)
[2023-12-20 08:04] LABS: BILIRUBIN,TOTAL 0.6 mg/dL (0.2-1); TOT PROT 5.1 g/dl (6.4-8.2)
[2023-12-20] MEDS: FUROSEMIDE 40 MG/4 ML INJECTABLE VIAL IVPUSH SCH (09:34)
[2023-12-20] MEDS: PANTOPRAZOLE 40 MG TABLET PO SCH (09:34)
[2023-12-20] MEDS ORDERED: LISINOPRIL 5 MG TABLET PO SCH (10:00)
[2023-12-21 09:11] LABS: BASO % 0.5 % (0-2.0); EOS % 1.9 % (0-4.5); HEMATOCRIT 31.8 % (32.4-45.2); HEMOGLOBIN 10.8 GM/dL (10.7-15.3); LYMPH % 6.8 % (8-40); MCH 32.6 pg (25.7-33.7); MEAN CELL VOLUME 95.8 fl (80-96); MEAN PLT VOLUME 8.5 fl (7.5-11.1); MONO % 10.6 % (3.8-10.2); NEUT % 80.2 % (42.8-82.8); PLATELET COUNT 205 10^3/uL (134-434); RBC 3.32 M/mm3 (3.60-5.2); RDW 15.8 % (11.6-15.6); WHITE BLOOD COUNT 7.1 K/mm3 (4.0-10.0)
[2023-12-21 09:26] LABS: POTASSIUM 3.7 mmol/L (3.5-5.1)
[2023-12-21 09:34] LABS: CALCIUM 8.9 mg/dL (8.5-10.1)
[2023-12-21 09:35] LABS: ALBUMIN 3.1 g/dl (3.4-5.0); BLOOD UREA NITROGEN 60.4 mg/dL (7-18)
[2023-12-21 09:38] LABS: CREATININE 3.5 mg/dL (0.55-1.3)
[2023-12-21 09:39] LABS: BILIRUBIN,TOTAL 0.8 mg/dL (0.2-1); TOT PROT 5.4 g/dl (6.4-8.2)
[2023-12-21] MEDS: amLODIPine BESYLATE 5 MG TABLET (FP) PO SCH (09:54)
[2023-12-21] MEDS ORDERED: ACETAMINOPHEN 325 MG TABLET (FP) PO PRN (10:30)
[2023-12-22 09:00] LABS: BASO % 0.6 % (0-2.0); EOS % 0.2 % (0-4.5); HEMATOCRIT 31.7 % (32.4-45.2); HEMOGLOBIN 10.6 GM/dL (10.7-15.3); LYMPH % 7.5 % (8-40); MCH 31.8 pg (25.7-33.7); MCHC 33.5 g/dl (32.0-36.0); MEAN CELL VOLUME 94.9 fl (80-96); MEAN PLT VOLUME 8.7 fl (7.5-11.1); NEUT % 77.7 % (42.8-82.8); PLATELET COUNT 177 10^3/uL (134-434); RBC 3.34 M/mm3 (3.60-5.2); RDW 15.1 % (11.6-15.6); WHITE BLOOD COUNT 7.6 K/mm3 (4.0-10.0)
[2023-12-22 09:15] LABS: POTASSIUM 3.3 mmol/L (3.5-5.1)
[2023-12-22 09:18] LABS: CALCIUM 8.7 mg/dL (8.5-10.1)
[2023-12-22 09:19] LABS: ALBUMIN 2.6 g/dl (3.4-5.0); BLOOD UREA NITROGEN 63.5 mg/dL (7-18)
[2023-12-22 09:22] LABS: CREATININE 3.4 mg/dL (0.55-1.3)
[2023-12-22 09:23] LABS: BILIRUBIN,TOTAL 1.2 mg/dL (0.2-1)
[2023-12-22 09:24] LABS: TOT PROT 4.8 g/dl (6.4-8.2)
[2023-12-22] MEDS: predniSONE 20 MG TABLET (UD) PO SCH (10:38)
[2023-12-22] MEDS: POTASSIUM CHLORIDE ORAL LIQUID 20 MEQ/15 ML PO ONE (10:39)
[2023-12-22] MEDS: COLCHICINE 0.6 MG TAB PO SCH (21:15)
[2023-12-23 08:09] LABS: HEMATOCRIT 32.6 % (32.4-45.2); HEMOGLOBIN 10.8 GM/dL (10.7-15.3); MCHC 33.2 g/dl (32.0-36.0); MEAN CELL VOLUME 96.4 fl (80-96); MEAN PLT VOLUME 8.9 fl (7.5-11.1); PLATELET COUNT 193 10^3/uL (134-434); RBC 3.38 M/mm3 (3.60-5.2); RDW 15.2 % (11.6-15.6); WHITE BLOOD COUNT 7.8 K/mm3 (4.0-10.0)
[2023-12-23 08:26] LABS: POTASSIUM 3.9 mmol/L (3.5-5.1)
[2023-12-23 08:36] LABS: ALBUMIN 2.6 g/dl (3.4-5.0); CALCIUM 8.8 mg/dL (8.5-10.1)
[2023-12-23 08:37] LABS: BLOOD UREA NITROGEN 65.9 mg/dL (7-18)
[2023-12-23 08:40] LABS: CREATININE 3.3 mg/dL (0.55-1.3)
[2023-12-23 08:41] LABS: BILIRUBIN,TOTAL 0.7 mg/dL (0.2-1); TOT PROT 5.1 g/dl (6.4-8.2)
[2023-12-23] MEDS ORDERED: TAMSULOSIN HCL 0.4 MG CAP PO SCH (10:00)
[2023-12-23] MEDS: amLODIPine BESYLATE 10 MG TABLET (FP) PO SCH (12:45)
[2023-12-23] MEDS: TAMSULOSIN HCL 0.4 MG CAP PO SCH (12:45)
[2023-12-24 08:52] LABS: POTASSIUM 3.9 mmol/L (3.5-5.1)
[2023-12-24 08:58] LABS: BLOOD UREA NITROGEN 78.4 mg/dL (7-18)
[2023-12-24 09:02] LABS: CREATININE 3.1 mg/dL (0.55-1.3)
[2023-12-24] MEDS ORDERED: LIDOCAINE HCL 2% (20ML MULTI-DOSE VIAL) ONE (15:16)
[2023-12-24] MEDS ORDERED: PROPOFOL 20 ML ONE (15:19)
[2023-12-24] MEDS ORDERED: MIDAZOLAM HCL 2 MG/2 ML SINGLE DOSE VIAL ONE (15:20)
[2023-12-24] MEDS ORDERED: ONDANSETRON 4 MG/2 ML VIAL ONE (17:24)
[2023-12-24] MEDS: ceFAZolin SODIUM 1 GM VIAL IVPB ONE (17:28)
[2023-12-24] MEDS ORDERED: ONDANSETRON 4 MG/2 ML VIAL IVPUSH PRN (17:47)
[2023-12-24] MEDS ORDERED: PHENYLEPHRINE HCL 10 MG/1 ML SINGLE DOSE VIAL ONE (17:51)
[2023-12-24] MEDS ORDERED: ACETAMINOPHEN 325 MG TABLET (FP) PO PRN (18:09)
[2023-12-24] MEDS: LACTATED RINGERS SOLUTION 1,000 ML IV SCH (18:15)
[2023-12-24] MEDS: TAMSULOSIN HCL 0.4 MG CAP PO SCH (21:27)
[2023-12-24] MEDS: COLCHICINE 0.6 MG TAB PO SCH (21:27)
[2023-12-25 04:03] LABS: HEMATOCRIT 33.6 % (32.4-45.2); HEMOGLOBIN 11.1 GM/dL (10.7-15.3); MCH 31.6 pg (25.7-33.7); MCHC 32.9 g/dl (32.0-36.0); MEAN PLT VOLUME 8.8 fl (7.5-11.1); PLATELET COUNT 233 10^3/uL (134-434); RDW 15.6 % (11.6-15.6); WHITE BLOOD COUNT 9.3 K/mm3 (4.0-10.0)
[2023-12-25] MEDS ORDERED: FLUTICASONE PROP 0.05% 16 GM NASAL SPRAY NS SCH (10:00)
[2023-12-25] MEDS: amLODIPine BESYLATE 10 MG TABLET (FP) PO SCH (10:54)
[2023-12-25] MEDS: OXYBUTYNIN CHLORIDE 5 MG TABLET PO SCH (12:40)
[2023-12-25] MEDS: predniSONE 20 MG TABLET (UD) PO SCH (12:57)
[2023-12-25] MEDS: FUROSEMIDE 40 MG/4 ML INJECTABLE VIAL IVPUSH SCH (12:58)
[2023-12-25] MEDS: PANTOPRAZOLE 40 MG TABLET PO SCH (12:58)
[2023-12-25] MEDS: FLUTICASONE PROP 0.05% 16 GM NASAL SPRAY NS SCH (12:58)
[2023-12-25] MEDS: LOPERAMIDE HCL 2 MG CAPSULE PO PRN (18:44)
[2023-12-26 09:30] VITALS: RESP 20
[2023-12-26] MEDS: FUROSEMIDE 40 MG TABLET (FP) PO SCH (10:18)
[2023-12-26 10:20] VITALS: BP 135/65; PULSE 80; TEMP 98.6
== END 2023-12-26 12:14 | DRG 292 ==
LOC: JER 17:01 → JERBED 19:48 → J7W 12-20 03:10
PROVIDERS: ADMIT Family Medicine; ATTEND Family Medicine
PROC: 0T9B40Z Drainage of Bladder with Drainage Device, Percutaneous Endoscopic Approach (ICD-10-PCS; principal; 2023-12-24 15:00)
PROC: 0TJB8ZZ Inspection of Bladder, Via Natural or Artificial Opening Endoscopic (ICD-10-PCS; 2023-12-24 15:00)
DX: I13.0 Hypertensive heart and chronic kidney disease with heart failure and stage 1 through stage 4 chronic kidney disease, or unspecified chronic kidney disease (principal); N13.30 Unspecified hydronephrosis; E11.22 Type 2 diabetes mellitus with diabetic chronic kidney disease; N18.9 Chronic kidney disease, unspecified; I50.9 Heart failure, unspecified; N31.9 Neuromuscular dysfunction of bladder, unspecified; M10.9 Gout, unspecified; R33.9 Retention of urine, unspecified
CPT/HCPCS: 36415; 71046-TC-FY; 73610-TC-RT-FY; 73630-TC-RT-FY; 74176-TC; 76775-TC; 76856-TC; 80048; 80053; 82550; 82570; 82962; 83036; 83735; 83880; 84100; 84300; 84484; 84550; 85025; 85027; 86850; 86900; 86901; 87635; 93005; 93010; 93306-TC; 94760; 97116-GP; 97161-GP; 99285-25; C2627

== ENCOUNTER 2024-02-22 18:09 | Inpatient (IN) | payer OTHER, BC ==
[2024-02-22 19:05] VITALS: BMI 26.2
[2024-02-22 20:00] LABS: BASO % 1.1 % (0-2.0); EOS % 2.8 % (0-4.5); HEMATOCRIT 28.8 % (32.4-45.2); HEMOGLOBIN 9.1 GM/dL (10.7-15.3); LYMPH % 13.1 % (8-40); MCH 30.8 pg (25.7-33.7); MCHC 31.8 g/dl (32.0-36.0); MEAN CELL VOLUME 96.9 fl (80-96); MEAN PLT VOLUME 8.2 fl (7.5-11.1); MONO % 9.2 % (3.8-10.2); NEUT % 73.8 % (42.8-82.8); PLATELET COUNT 285 10^3/uL (134-434); RBC 2.97 M/mm3 (3.60-5.2); RDW 17.9 % (11.6-15.6); WHITE BLOOD COUNT 6.1 K/mm3 (4.0-10.0)
[2024-02-22 20:01] LABS: EPI CELLS 9 /uL (0-25.1); HYALINE CASTS 2 /uL (0-3.1); PH,URINE 5.5 (5.0-8.0); URINE APPEARANCE TURBID; URINE BACTERIA >9,000 /uL (0-1359); URINE BILIRUBIN NEGATIVE (NEGATIVE); URINE COLOR YELLOW; URINE GLUCOSE (UA) NEGATIVE (NEGATIVE); URINE KETONE NEGATIVE (NEGATIVE); URINE LEUK ESTERASE 3+ (NEGATIVE); URINE NITRITE POSITIVE (NEGATIVE); URINE PROTEIN 2+ (NEGATIVE); URINE RBC 306 /uL (0-23.9); URINE UROBILINOGEN 0.2 mg/dL (0.2-1.0); URINE WBC 5939 /uL (0-25.8)
[2024-02-22 20:26] LABS: POTASSIUM 4.5 mmol/L (3.5-5.1)
[2024-02-22 20:28] LABS: CALCIUM 8.4 mg/dL (8.5-10.1)
[2024-02-22 20:29] LABS: BLOOD UREA NITROGEN 83.9 mg/dL (7-18)
[2024-02-22 20:32] LABS: CREATININE 5.1 mg/dL (0.55-1.3)
[2024-02-22 20:33] LABS: BILIRUBIN,TOTAL 0.6 mg/dL (0.2-1); TOT PROT 5.6 g/dl (6.4-8.2)
[2024-02-22] MEDS ORDERED: PIPERACILLIN/TAZOB 4.5 GM 4.5 GM/100 ML BAG IVPB ONE (20:54)
[2024-02-22] MEDS: PIPERACILLIN/TAZOB 4.5 GM 4.5 GM in DEXTROSE 5%-WATER 100 ML IVPB ONE (21:02)
[2024-02-22] MEDS ORDERED: VANCOMYCIN 1 GRAM (PRE-DOCKED) 1,000 MG/250 ML BAG IVPB ONE (21:17)
[2024-02-22] MEDS: VANCOMYCIN 1,000 MG in DEXTROSE 5%-WATER - 250 ML IVPB ONE (21:30)
[2024-02-22] MEDS ORDERED: SODIUM CHLORIDE 1,000 ML IV SCH (23:15)
[2024-02-23] MEDS ORDERED: FUROSEMIDE 40 MG TABLET (FP) ONE (00:28)
[2024-02-23] MEDS: FUROSEMIDE 40 MG TABLET (FP) PO ONE (00:30)
[2024-02-23] MEDS: NYSTATIN POWDER 100,000 UNITS/GM - 15 GM TOPICAL POWDER TP ONE (00:59)
[2024-02-23] MEDS ORDERED: CEFTRIAXONE 1,000 MG in DEXTROSE 5%-WATER - 50 ML IVPB ONE (05:00)
[2024-02-23] MEDS: CEFTRIAXONE 1 GM in DEXTROSE 5%-WATER - 50 ML IVPB ONE (06:38)
[2024-02-23 09:35] LABS: BASO % 0.5 % (0-2.0); EOS % 3.4 % (0-4.5); HEMOGLOBIN 9.1 GM/dL (10.7-15.3); LYMPH % 11.1 % (8-40); MCH 31.3 pg (25.7-33.7); MCHC 32.4 g/dl (32.0-36.0); MEAN CELL VOLUME 96.4 fl (80-96); MEAN PLT VOLUME 8.2 fl (7.5-11.1); MONO % 7.6 % (3.8-10.2); NEUT % 77.4 % (42.8-82.8); PLATELET COUNT 266 10^3/uL (134-434); RDW 17.4 % (11.6-15.6); WHITE BLOOD COUNT 6.8 K/mm3 (4.0-10.0)
[2024-02-23 09:54] LABS: POTASSIUM 3.9 mmol/L (3.5-5.1)
[2024-02-23 09:57] LABS: CALCIUM 8.6 mg/dL (8.5-10.1)
[2024-02-23 09:58] LABS: ALBUMIN 2.7 g/dl (3.4-5.0); BLOOD UREA NITROGEN 84.2 mg/dL (7-18)
[2024-02-23] MEDS: PANTOPRAZOLE 40 MG TABLET PO SCH (09:59)
[2024-02-23] MEDS: ASPIRIN 81 MG CHEWABLE TABLETS PO SCH (09:59)
[2024-02-23] MEDS ORDERED: ASPIRIN COATED 81 MG TABLET.EC PO SCH (10:00)
[2024-02-23 10:01] LABS: BILIRUBIN,TOTAL 0.6 mg/dL (0.2-1); CREATININE 4.5 mg/dL (0.55-1.3)
[2024-02-23 10:03] LABS: TOT PROT 5.1 g/dl (6.4-8.2)
[2024-02-24] MEDS: ACETAMINOPHEN 325 MG TABLET (FP) PO ONE (05:00)
[2024-02-24 09:08] LABS: BASO % 0.8 % (0-2.0); EOS % 3.7 % (0-4.5); HEMATOCRIT 27.4 % (32.4-45.2); HEMOGLOBIN 8.8 GM/dL (10.7-15.3); LYMPH % 7.3 % (8-40); MCH 30.9 pg (25.7-33.7); MEAN CELL VOLUME 96.3 fl (80-96); MONO % 7.8 % (3.8-10.2); NEUT % 80.4 % (42.8-82.8); PLATELET COUNT 232 10^3/uL (134-434); POTASSIUM 3.8 mmol/L (3.5-5.1); RBC 2.84 M/mm3 (3.60-5.2); RDW 17.8 % (11.6-15.6); WHITE BLOOD COUNT 6.6 K/mm3 (4.0-10.0)
[2024-02-24 09:13] LABS: CALCIUM 8.6 mg/dL (8.5-10.1)
[2024-02-24 09:14] LABS: ALBUMIN 2.5 g/dl (3.4-5.0); BLOOD UREA NITROGEN 78.6 mg/dL (7-18)
[2024-02-24 09:16] LABS: CREATININE 4.2 mg/dL (0.55-1.3)
[2024-02-24 09:18] LABS: BILIRUBIN,TOTAL 0.7 mg/dL (0.2-1); TOT PROT 4.8 g/dl (6.4-8.2)
[2024-02-24] MEDS ORDERED: ALBUTEROL SO4 0.083% IH SOL 2.5 MG/3 ML VIAL.NEB. NEB PRN (10:35)
[2024-02-24] MEDS: FUROSEMIDE 40 MG TABLET (FP) PO SCH (10:36)
[2024-02-24] MEDS ORDERED: ACETAMINOPHEN 325 MG TABLET (FP) PO PRN (11:35)
[2024-02-24] MEDS: FUROSEMIDE 40 MG/4 ML INJECTABLE VIAL IVPUSH SCH (13:18)
[2024-02-24] MEDS: BUDESONIDE/FORMETEROL FUMARATE 80/4.5 mcg INHALER IH SCH (22:18)
[2024-02-25 08:28] LABS: BASO % 1.3 % (0-2.0); EOS % 4.8 % (0-4.5); HEMATOCRIT 31.5 % (32.4-45.2); LYMPH % 10.2 % (8-40); MCH 31.2 pg (25.7-33.7); MCHC 31.6 g/dl (32.0-36.0); MEAN CELL VOLUME 98.6 fl (80-96); MEAN PLT VOLUME 8.1 fl (7.5-11.1); MONO % 8.5 % (3.8-10.2); NEUT % 75.2 % (42.8-82.8); PLATELET COUNT 266 10^3/uL (134-434); RDW 17.2 % (11.6-15.6); WHITE BLOOD COUNT 8.1 K/mm3 (4.0-10.0)
[2024-02-25 08:38] LABS: POTASSIUM 3.8 mmol/L (3.5-5.1)
[2024-02-25 08:44] LABS: ALBUMIN 2.5 g/dl (3.4-5.0); CALCIUM 8.4 mg/dL (8.5-10.1)
[2024-02-25 08:45] LABS: BLOOD UREA NITROGEN 70.8 mg/dL (7-18)
[2024-02-25 08:49] LABS: CREATININE 3.6 mg/dL (0.55-1.3); PHOSPHOROUS 5.4 mg/dL (2.5-4.9)
[2024-02-25 08:50] LABS: BILIRUBIN,TOTAL 0.7 mg/dL (0.2-1)
[2024-02-25] MEDS: predniSONE 20 MG TABLET (UD) PO SCH (10:21)
[2024-02-25] MEDS: ALLOPURINOL 100 MG TABLET (FP) PO SCH (10:21)
[2024-02-26 09:16] LABS: POTASSIUM 3.8 mmol/L (3.5-5.1)
[2024-02-26 09:19] LABS: CALCIUM 9.3 mg/dL (8.5-10.1)
[2024-02-26 09:20] LABS: BLOOD UREA NITROGEN 74.9 mg/dL (7-18)
[2024-02-26 09:23] LABS: CREATININE 3.3 mg/dL (0.55-1.3)
[2024-02-26] MEDS: NITROFURANTOIN MONOHYD/M-CRYST 100 MG CAPSULE PO SCH (21:38)
[2024-02-27 22:11] VITALS: BP 173/71; PULSE 88; RESP 18; TEMP 98.6
== END 2024-02-28 05:45 | DRG 291 ==
LOC: JER 18:09 → JERBED 20:49 → J7W 02-23 05:33
PROVIDERS: ADMIT Family Medicine; ATTEND Family Medicine
DX: I13.2 Hypertensive heart and chronic kidney disease with heart failure and with stage 5 chronic kidney disease, or end stage renal disease (principal); I50.33 Acute on chronic diastolic (congestive) heart failure; N18.5 Chronic kidney disease, stage 5; N39.0 Urinary tract infection, site not specified; N17.9 Acute kidney failure, unspecified; E11.22 Type 2 diabetes mellitus with diabetic chronic kidney disease; E78.5 Hyperlipidemia, unspecified; D64.9 Anemia, unspecified; M10.9 Gout, unspecified; E87.70 Fluid overload, unspecified; R33.9 Retention of urine, unspecified
CPT/HCPCS: 0241U-QW; 36415; 71045-TC-FY; 80048; 80053; 81003; 82962; 83036; 83880; 84100; 84484; 85025; 87086; 87186; 87635; 93005; 93010; 93990-TC; 97116-GP; 97162-GP; 99285-25